=== PATIENT | male | born 1980 ===

== ENCOUNTER 2019-08-06 14:27 | Emergency (ER) | payer OTHER, SELFPAY ==
[2019-08-06 14:33] VITALS: BP 157/93; PULSE 105; RESP 18; TEMP 37; O2SAT 95; BMI 26.6
--- NOTE | 2019-08-06 14:39 | PC.NURSE ---
Timmy reports use of mucinex sinus and sudafed over the last week and half. Reports bright red blood in mucous this morning in shower. Denies fevers chills, denies SOB denies dizziness. Reports pressure in sinuses.
--- NOTE | 2019-08-06 15:05 | ED.URI ---
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 Patient reports patient was evaluated at [facility] primary care physician about a week ago with similar symptoms and was discharged to home with with Lissa, has been using Mucinex sinus DM, Tylenol as needed. Patient thought he was feeling better a few days ago but now the feelings recurring and worse. Patient also has been using humidifier in the house. Patient denies prior history of lung disease. Had received influenza vaccination for this season. Patient has exposed to similar illness to close contact from his friend. Related Data Previous Rx's Medication Instructions Recorded amoxicillin-pot clavulanate 1 tab PO BID 7 Days #14 tab 08/06/19 [Augmentin] fluticasone propionate 1 spray NASAL BID #9.9 ml 08/06/19 Allergies Allergy/AdvReac Type Severity Reaction Status Date / Time No Known Drug Allergies Allergy Verified 08/06/19 14:36 Review of Systems <JAYME Arias - Last Filed: 08/06/19 15:17> Review of Systems Narrative: General: Reports subjective fever, fatigue and malaise. Denies chills, sweats. HEENT: Reports sinus pain, purulent discharge with blood. Denies ear pain, sore throat, difficulty swallowing, dizziness. Respiratory: Reports productive cough with yellow mucus. Denies dyspnea, wheezing, hemoptysis. Cardiovascular: Denies chest pain, palpitations, orthopnea, edema. Gastrointestinal: Denies nausea, vomiting, abdominal pain, diarrhea, constipation, melena. : Denies dysuria, frequency, incontinence, hematuria, urinary retention. Musculoskeletal: Denies weakness, joint pain or bony pain. Skin: Denies rash, skin lesions, or other. Neurologic: Reports sinus headache. Denies weakness, numbness, change in speech, confusion, seizures, incoordination. Psychiatric: No concerning psychosocial issues. 12-point review of systems is negative except for those stated above. Patient History <JAYME Arias - Last Filed: 08/06/19 15:17> Medical History No significant past medical history (Acute) Surgical History No pertinent past surgical history (Acute) Social History Smoking Status: Never smoker Smoking Status: Never smoker Substance Use Type: does not use Exam <JAYME Arias - Last Filed: 08/06/19 15:17> Narrative Exam Narrative: GEN: Alert, oriented x 3, well appearing and nourished, and in no acute distress. Head: Normal cephalic, atraumatic. No scalp or temporal tenderness, palpable mass or rash. EYES: Pupils are equal, round, and reactive to light and accommodation. Extraocular muscles are intact bilaterally. There is no subconjunctival hemorrhage, exudate and sclera non-icteric. ENT: Bilateral auditory canals and tympanic membranes clear. Hearing grossly intact. Nose without bleeding, (+) purulent discharge or (-) deviation. Turbinates swollen and erythematous. Facial sinuses tender to palpate. Mucous membrane moist, no mucosal lesion. Throat without erythema, tonsillar hypertrophy or exudate. Uvula in midline, airway patent. Neck: Trachea in midline. No JVD, tender to palpate in anterior cervical lymph nodes. No masses or thyroid megaly. Supple, non-tender and no meningeal signs. CARDIAC: Normal regular rate and rhythm without murmurs, gallops, or rubs. No chest wall tenderness. No peripheral edema, cyanosis or pallor. Capillary refill is less than 2 seconds. RESPIRATORY: Lungs are clear to auscultate bilaterally. No cough, wheezes, rales, or rhonchi. No stridor, respiratory distress, increase work of breathing, or accessary muscle used. ABD: Abdomen soft, nontender and non-distended. No guarding or rebound tenderness to palpate. Bowel sounds are normal in all 4 quadrants. There is no palpable masses or organomegaly. EXT: Full painless ROM of all extremities with no loss of sensation, strength, effusion or edema. SKIN: Warm, dry, normal color for patient. No erythema, lesions or rash over visible areas. BACK: Nontender without deformity or crepitance. No flank tenderness. NEUROLOGICAL: Alert and oriented to place, time and person. Sensation and motor function intact bilaterally. No facial droops, dysphasia. PSYCHIATRIC: Good judgement and reason, without hallucinations, abnormal affect or abnormal behaviors during the examination. Initial Vital Signs Initial Vital Signs: Vital Signs Temperature 98.6 F 08/06/19 14:33 Pulse Rate 105 H 08/06/19 14:33 Respiratory Rate 18 08/06/19 14:33 Blood Pressure 157/93 H 08/06/19 14:33 Pulse Oximetry 95 08/06/19 14:33 <Debbie Barrera DO - Last Filed: 08/06/19 16:47> Initial Vital Signs Initial Vital Signs: Vital Signs Temperature 98.6 F 08/06/19 14:33 Pulse Rate 105 H 08/06/19 14:33 Respiratory Rate 18 08/06/19 14:33 Blood Pressure 157/93 H 08/06/19 14:33 Pulse Oximetry 95 08/06/19 14:33 Scores <JAYME Arias - Last Filed: 08/06/19 15:17> GCS [place] coma scale eye opening: Spontaneous [place] coma scale verbal response: Orientated [place] coma scale motor response: Obey commands [place] coma scale total score: 15 Course <JAYME Arias - Last Filed: 08/06/19 15:17> Vital Signs Vital signs: Vital Signs - 8 hr 08/06/19 14:33 Temperature 98.6 F Pulse Rate 105 H Respiratory Rate 18 Blood Pressure 157/93 H Pulse Oximetry 95 <Debbie Barrera DO - Last Filed: 08/06/19 16:47> Vital Signs Vital signs: Vital Signs - 8 hr 08/06/19 14:33 Temperature 98.6 F Pulse Rate 105 H Respiratory Rate 18 Blood Pressure 157/93 H Pulse Oximetry 95 MDM - URI/Sore Throat <JAYME Arias - Last Filed: 08/06/19 15:17> Differential Diagnosis Differential diagnosis: Likely upper respiratory infection and sinusitis Medical Records Attestation: I reviewed the patient's medical records. MDM Narrative Medical decision making narrative: This is a 38-year-old male who presents to ED with sinus pain, purulent and bloody sinus discharge, productive cough, subjective fever, malaise/fatigue. Onset of symptoms started 2 weeks ago and has been treating his symptoms with Mucinex sinus DM with Tylenol, Sudafed, humidifier after he was evaluated by his primary care physician about a week ago. Patient reports initially felt slightly improved with self treatments but now his symptoms recurring with bloody nasal discharge and worsening symptoms. Patient reports subjective fever with Tylenol product use. Given patient's symptoms lasted greater than 10 days, double sickness after using symptomatic treatments, patient was discharged to home with Augmentin b.i.d. dose for 7 day course. Patient advised to use Flonase for nasal congestion and hydrate well and continue with symptoms treatment for supportive care. Return precautions were discussed with the patient and advised to follow with PCP in 2-3 days. Patient verbalized understanding and agrees with the treatment plan. Discharge Plan Departure Patient Disposition: Home Clinical Impression: Acute sinus infection Qualifiers: Sinusitis location: unspecified location Recurrence: not specified as recurrent Qualified Code(s): J01.90 - Acute sinusitis, unspecified Discharge Date/Time: 08/06/19 15:14 Activity Restrictions/Additional Instructions: You have been diagnosed with [sinus infection. This has been going on longer than 2 weeks with symptom management with medications.]. What to do: *Take your medications as directed. Start Augmentin twice a day for next 7 days. Use Flonase 1 spray in each nostril twice a day for nasal congestion and you can continue to use Mucinex, Sudafed, [id number] Tylenol and or Motrin as needed for discomfort and fever, nasal rinses with normal saline/clean water, humidifier for your symptoms. Augmentin and Flonase prescription has been transmitted to [facility] in [place]. *Follow up with your primary care provider in 2-3 days, call for an appointment. Let them know you were seen in the ED and that we asked you to be seen in follow up. *Return to ED if you have any new, worsening, or concerning symptoms, such as [redness, pain, warmth spreading to her face, breathing difficulty, chest pain, unable to tolerate fluids, or any acute concerns]. Prescriptions: New amoxicillin-pot clavulanate [Augmentin] 875-125 mg tablet 1 tab PO BID 7 Days Qty: 14 RF: 0 fluticasone propionate 50 mcg/actuation spray,suspension 1 spray NASAL BID Qty: 9.9 RF: 0 Referrals: [facility] [Outside]
== END 2019-08-06 15:14 | disposition home or self-care (01) ==
PROVIDERS: Emergency Provider Nurse Practitioner Family
DX: J01.90 Acute sinusitis, unspecified (principal)
CPT/HCPCS: 99281; 99282